=== PATIENT | female | born 1950 | race Caucasian/White ===

== ENCOUNTER 2016-10-12 09:34 | Day surgery (SDC) | payer MEDICARE, OTHER ==
--- NOTE | ~2016-10-12 | EGD ---
EGD REPORT [facility] [address] [id number] NAME: TORO ABREU : [birth year] STATUS : REG [facility]#: [id number] AGE: 66 ADM/REG DATE : 10/12/16 MR#: [id number] REPORT SERV DATE: 10/12/16 DICTATED BY: DATE: REPORT STATUS : Draft TRANSCRIBED BY: [employer] DATE: 10/12/16 Endoscopy Center Patient Name: Toro Abreu Date of : 1950 Attending MD: SOLEDAD MAHAJAN MD Procedure Date No Time: 10/12/2016 Procedure: Upper GI endoscopy Indications: Dysphagia Referring MD: YANETH ANSARI Medicines: Monitored Anesthesia Care Complications: No immediate complications. Procedure: Pre-Anesthesia Assessment: - ASA Grade Assessment: II - A patient with mild systemic disease. After obtaining informed consent, the endoscope was passed under direct vision. Throughout the procedure, the patient's blood pressure, pulse, and oxygen saturations were monitored continuously. The GIF H190 [id number] was introduced through the mouth, and advanced to the third part of duodenum. The upper GI endoscopy was accomplished without difficulty. The patient tolerated the procedure well. Findings: The Z-line was irregular and was found 39 cm from the incisors. Biopsies were taken with a cold forceps for histology. No other significant abnormalities were identified in a careful examination of the esophagus. There is no endoscopic evidence of areas of erosion, ulcerations, varices, mass or nodules in the entire esophagus. A guidewire was placed and the scope was withdrawn. Dilation was performed in the entire esophagus with a Savary dilator with no resistance at 54 Fr. The entire examined stomach was normal. There is no endoscopic evidence of inflammation, mucosal abnormalities, ulceration or varices in the entire examined stomach. The examined duodenum was normal. There is no endoscopic evidence of mucosal abnormalities or ulceration in the entire examined duodenum. The cardia and gastric fundus were normal on retroflexion. Impression: - Z-line irregular, 39 cm from the incisors. Biopsied. - Normal stomach. - Normal examined duodenum. - Dilation attempted in the entire esophagus. Successful. EGD REPORT [address] [address] NAME: TORO ABREU : [birth year] STATUS : [place] [facility] [place] [facility] [place] PAT#: [id number] AGE: 66 ADM/REG DATE : 10/12/16 MR#: [id number] REPORT SERV DATE: 10/12/16 DICTATED BY: DATE: REPORT STATUS : Draft TRANSCRIBED BY: [employer] DATE: 10/12/16 Recommendation: - Patient has a contact number available for emergencies. The signs and symptoms of potential delayed complications were discussed with the patient. Return to normal activities tomorrow. Written discharge instructions were provided to the patient. - Return to previous diet. - Discharge patient to home. - Continue present medications. - Await pathology results. Procedure Code(s): --- Professional --- 15961, Esophagogastroduodenoscopy, flexible, transoral; with insertion of guide wire followed by passage of dilator(s) through esophagus over guide wire 07537, Esophagogastroduodenoscopy, flexible, transoral; with biopsy, single or multiple Diagnosis Code(s): --- Professional --- K22.8, Other specified diseases of esophagus R13.10, Dysphagia, unspecified CPT copyright 2013 [employer]. All rights reserved. The codes documented in this report are preliminary and upon stack supervisor review may be revised to meet current compliance requirements. SOLEDAD MAHAJAN MD 10/12/2016 12:41 PM This report has been signed electronically. Number of Addenda: 0 Note Initiated On: 10/12/2016 12:28 PM Scope Withdrawal Time 0 hours 0 minutes 0 seconds [id number] [id number]
--- NOTE | ~2016-10-12 | EGD ---
EGD REPORT [facility] [address] [address] NAME: TORO ABREU : [birth year] STATUS : REG [facility]#: [id number] AGE: 66 ADM/REG DATE : 10/12/16 MR#: [id number] REPORT SERV DATE: 10/12/16 DICTATED BY: DATE: REPORT STATUS : Draft TRANSCRIBED BY: [employer] DATE: 10/12/16 Endoscopy Center Patient Name: Toro Abreu Date of : 1950 Attending MD: SOLEDAD MAHAJAN MD Procedure Date No Time: 10/12/2016 Procedure: Colonoscopy Indications: High risk colon CA surveillance: Personal history multiple (3 or more) adenomas Referring MD: YANETH ANSARI Medicines: Monitored Anesthesia Care Complications: No immediate complications. Procedure: Pre-Anesthesia Assessment: - ASA Grade Assessment: II - A patient with mild systemic disease. After I obtained informed consent, the scope was passed under direct vision. Throughout the procedure, the patient's blood pressure, pulse, and oxygen saturations were monitored continuously. The PCF [id number] was introduced through the anus and advanced to the cecum, identified by appendiceal orifice and ileocecal valve. The colonoscopy was performed without difficulty. The patient tolerated the procedure well. The quality of the bowel preparation was excellent. Findings: The perianal and digital rectal examinations were normal. Multiple small and large-mouthed diverticula were found in the sigmoid colon. Two sessile polyps were found in the cecum. The polyps were 4 to 10 mm in size. These polyps were removed with a cold snare. Resection and retrieval were complete. Three sessile polyps were found in the cecum. The polyps were diminutive in size. These polyps were removed with a cold biopsy forceps. Resection and retrieval were complete. Two sessile polyps were found at the splenic flexure. The polyps were small in size. These polyps were removed with a cold snare. Resection and retrieval were complete. A sessile polyp was found in the rectum. The polyp was small in size. The polyp was removed with a cold snare. Resection and retrieval were complete. No other significant abnormalities were identified in a careful examination of the remainder of the colon. There is no endoscopic evidence of inflammation, mass, ulcerations or angioectasia in the entire colon. EGD REPORT [facility] [id number] [facility] [place]. [address] NAME: TORO ABREU : [birth year] STATUS : REG [facility]#: [id number] AGE: 66 ADM/REG DATE : 10/12/16 MR#: [id number] REPORT SERV DATE: 10/12/16 DICTATED BY: DATE: REPORT STATUS : Draft TRANSCRIBED BY: [facility] DATE: 10/12/16 No additional abnormalities were found on retroflexion. Impression: - Diverticulosis in the sigmoid colon. - Two 4 to 10 mm polyps in the cecum. Resected and retrieved. - Three diminutive polyps in the cecum. Resected and retrieved. - Two small polyps at the splenic flexure. Resected and retrieved. - One small polyp in the rectum. Resected and retrieved. Recommendation: - Patient has a contact number available for emergencies. The signs and symptoms of potential delayed complications were discussed with the patient. Return to normal activities tomorrow. Written discharge instructions were provided to the patient. - High fiber diet. - Discharge patient to home. - Continue present medications. - Await pathology results. - Repeat colonoscopy in 3 years for surveillance. Procedure Code(s): --- Professional --- 93185, Colonoscopy, flexible, proximal to splenic flexure; with removal of tumor(s), polyp(s), or other lesion(s) by snare technique 55028, 59, Colonoscopy, flexible, proximal to splenic flexure; with biopsy, single or multiple Diagnosis Code(s): --- Professional --- K57.30, Diverticulosis of large intestine without perforation or abscess without bleeding K62.1, Rectal polyp D12.3, Benign neoplasm of transverse colon D12.0, Benign neoplasm of cecum Z86.010, Personal history of colonic polyps CPT copyright 2013 [employer]. All rights reserved. The codes documented in this report are preliminary and upon fishing instructor review may be revised to meet current compliance requirements. SOLEDAD MAHAJAN MD 10/12/2016 1:06 PM This report has been signed electronically. EGD REPORT [facility] [address] [address] NAME: TORO ABREU : [birth year] [place] [facility] [place] [id number] AGE: 66 ADM/REG DATE : 10/12/16 MR#: [id number] REPORT SERV DATE: 10/12/16 DICTATED BY: DATE: REPORT STATUS : Draft TRANSCRIBED BY: [facility] DATE: 10/12/16 Number of Addenda: 0 Note Initiated On: 10/12/2016 12:27 PM Scope Withdrawal Time 0 hours 17 minutes 56 seconds [address] [id number]
[~2016-10-12 09:34] MED LIST: ACIPHEX PO; ASAB PO; COREG3 PO; FLONASE NAS; METANX PO; PREV15 PO
== END 2016-10-12 23:59 | disposition home or self-care (01) ==
LOC: DMU 09:34
PROVIDERS: Internal Medicine Gastroenterology
PROC: 0DBL8ZZ Excision of Transverse Colon, Via Natural or Artificial Opening Endoscopic (ICD-10-PCS; 2016-10-12)
PROC: 0DB48ZX Excision of Esophagogastric Junction, Via Natural or Artificial Opening Endoscopic, Diagnostic (ICD-10-PCS; principal; 2016-10-12 11:00)
PROC: 0D758ZZ Dilation of Esophagus, Via Natural or Artificial Opening Endoscopic (ICD-10-PCS; 2016-10-12 11:00)
PROC: 0DBH8ZZ Excision of Cecum, Via Natural or Artificial Opening Endoscopic (ICD-10-PCS; 2016-10-12 11:00)
PROC: 0DBP8ZZ Excision of Rectum, Via Natural or Artificial Opening Endoscopic (ICD-10-PCS; 2016-10-12 11:00)
DX: D12.0 Benign neoplasm of cecum (principal); D12.3 Benign neoplasm of transverse colon; D12.8 Benign neoplasm of rectum; K63.5 Polyp of colon; K57.30 Diverticulosis of large intestine without perforation or abscess without bleeding; I10 Essential (primary) hypertension; G47.30 Sleep apnea, unspecified; Z88.2 Allergy status to sulfonamides; Z88.5 Allergy status to narcotic agent; Z79.82 Long term (current) use of aspirin; Z79.51 Long term (current) use of inhaled steroids; Z79.899 Other long term (current) drug therapy; Z86.010 Personal history of colon polyps
CPT/HCPCS: 88305